=== PATIENT | female | born 1980 | race African-American/Black ===

== ENCOUNTER 2023-09-25 00:56 | Inpatient (IN) | payer MEDICAID, OTHER ==
[~2023-09-25] VITALS: Ht 170.2 cm; Wt 86.7 kg
[~2023-09-25 00:56] MED LIST: IRON18TA PO; PHEN-434 PO; PRENATAL ONE T1 EACH PO
[2023-09-25] MEDS ORDERED: MORPHINE SULFATE 4 MG/ML INJ (FOR IV/IM USE) IV STA (05:42)
[2023-09-25] MEDS ORDERED: ONDANSETRON HCL 4MG/2ML INJ IV STA (05:42)
[2023-09-25 06:06] LABS: BASOPHILS % 0.4 % (0.0-2.0); EOSINOPHILS % 0.1 % (0.0-5.0); HEMATOCRIT. 44.4 % (36.0-48.0); HEMOGLOBIN. 14.7 g/dL (12.0-16.0); LYMPHOCYTES % 13.5 % (20.0-50.0); MEAN CORPUSCULAR HEMOGLOBIN 27.7 pg (28.0-32.0); MEAN CORPUSCULAR HGB CONC 33.1 g/dL (31.0-37.0); MEAN CORPUSCULAR VOLUME 83.7 fL (81.0-99.0); MONOCYTES % 9.2 % (2.0-8.0); NEUTROPHILS % 76.8 % (40.0-76.0); PLATELET 394 x1000/uL (130-400); RED BLOOD CELL COUNT 5.31 mill/uL (4.2-5.4); RED CELL DISTRIBUTION WIDTH 13.8 % (11.6-14.6); WHITE BLOOD COUNT 8.8 x1000/uL (4.5-11.0)
[2023-09-25 06:08] LABS: CHLORIDE 103 mEq/L (98-107); POTASSIUM 3.8 mEq/L (3.5-5.1); SODIUM 141 mEq/L (136-145)
[2023-09-25 06:09] LABS: CALCIUM 9.8 mg/dL (8.7-10.4); CARBON DIOXIDE 32 mEq/L (21-32)
[2023-09-25 06:14] LABS: CREATININE 0.8 mg/dL (0.6-1.0); GLUCOSE 119 mg/dL (70-105); INR 0.9; PROTHROMBIN TIME 10.4 sec (9.6-11.0); UREA NITROGEN BLOOD 9 mg/dL (9-23)
[2023-09-25 06:15] LABS: HCG SCREEN NEGATIVE
[2023-09-25] MEDS: MORPHINE SULFATE 4 MG/ML INJ (FOR IV/IM USE) IV NR (09:03)
[2023-09-25] MEDS: ONDANSETRON HCL 4MG/2ML INJ IV NR (09:03)
[2023-09-25] MEDS: SODIUM CHLORIDE 0.9% 1,000 ML IV ONE (09:03)
[2023-09-25] MEDS ORDERED: IOHEXOL-300 100 ML BOTTLE ONE (10:21)
[2023-09-25] MEDS: MORPHINE SULFATE 4 MG/ML INJ (FOR IV/IM USE) IV STA (11:40)
[2023-09-25 11:41] LABS: CLARITY URINE CLEAR (CLEAR); COLOR URINE DARK YELLOW (YELLOW); GLUCOSE URINE NEGATIVE (NEGATIVE); KETONES URINE 1+ (NEGATIVE); LEUKOCYTE ESTERASE URINE TRACE (NEGATIVE); NITRITE URINE NEGATIVE (NEGATIVE); OCCULT BLOOD URINE NEGATIVE (NEGATIVE); PROTEIN URINE 1+ (NEGATIVE); SPECIFIC GRAVITY URINE 1.062 (1.005-1.030)
[2023-09-25 12:13] VITALS: BP 127/73; PULSE 70; RESP 20; TEMP 37.11408; O2SAT 99
[2023-09-25] MEDS ORDERED: ONDANSETRON HCL 4MG/2ML INJ IV PRN (12:30)
[2023-09-25] MEDS ORDERED: IPRATROPIUM/ALBUTEROL 0.5-3(2.5)MG/3ML NEB HHN PRN (12:30)
[2023-09-25] MEDS ORDERED: ACETAMINOPHEN 325MG TABLET PO PRN (12:30)
[2023-09-25 13:11] LABS: SQUAMOUS EPITHELIAL CELL URINE 3+ /lpf (RARE/1+); WBC URINE 50-100 /hpf (0-2)
[2023-09-25 13:12] LABS: BACTERIA URINE 2+; YEAST URINE NONE SEEN
[2023-09-25] MEDS: PANTOPRAZOLE SODIUM 40 MG/VIAL IV SCH (13:25)
[2023-09-25] MEDS: DEXT 5%/0.45% NACL 1000ML 1,000 ML IV SCH (13:26)
[2023-09-25] MEDS ORDERED: NALOXONE HCL 0.4MG/ML VIAL IV PRN (14:45)
[2023-09-25] MEDS: MORPHINE SULFATE 2 MG/ML INJ (NOT FOR IM USE) IV PRN (15:00)
[2023-09-25 15:14] VITALS: BP 127/65; PULSE 75; RESP 18; TEMP 36.696
[2023-09-25 16:00] VITALS: BP 118/55; PULSE 67; RESP 20; TEMP 36.50292; O2SAT 95
[2023-09-25] MEDS ORDERED: PHENYLEPHRINE 50MG/250ML PMX 250 ML IV PRN (20:00)
[2023-09-25] MEDS ORDERED: FENTANYL CITRATE/PF 50MCG/ML 5ML VIAL ONE (20:11)
[2023-09-25] MEDS ORDERED: TETRACAINE/BENZOCAINE/BUTAMBEN 20 GM SPRAY MM ONE (20:20)
[2023-09-25] MEDS ORDERED: ROCURONIUM BROMIDE 10MG/ML VIAL 5ML IV ONE ×3 (20:46→22:41)
[2023-09-25] MEDS ORDERED: ALBUMIN HUMAN 12.5G/250ML (5%) IV ONE (21:07)
[2023-09-25] MEDS ORDERED: GLYCOPYRROLATE 0.2 MG/ML 2ML VIAL ONE (21:12)
[2023-09-25] MEDS ORDERED: HYDROMORPHONE HCL/PF 2MG/ML INJ ONE ×2 (21:38→23:48)
[2023-09-25] MEDS: LACTATED RINGERS 1,000 ML IV SCH (22:15)
[2023-09-25] MEDS ORDERED: HYDROMORPHONE HCL/PF 2MG/ML INJ IV PRN (22:15)
[2023-09-25] MEDS ORDERED: MIDAZOLAM HCL 2 MG/2 ML VIAL ONE ×2 (23:47)
[2023-09-26] VITALS (105 sets, daily range): BP systolic 108–183; BP diastolic 64–109; PULSE 58–101; RESP 12–29; TEMP 33.28044–37.55856; O2SAT 97–100
[2023-09-26] MEDS: PROPOFOL 10MG/ML 100ML 100 ML IV PRN (00:44)
[2023-09-26] MEDS: HYDRALAZINE 20MG/ML VIAL IV PRN (01:30)
[2023-09-26] MEDS: MORPHINE SULFATE 4 MG/ML INJ (FOR IV/IM USE) IV PRN (01:54)
[2023-09-26 02:01] LABS: BG CARBOXYHEMOGLOBIN 0.9 % (0.5-1.5); BG DEOXYHEMOGLOBIN 0.8 % (0.0-5.0); BG HCO3 ACT 24.2 mmol/L (22.0-26.0); BG METHEMOGLOBIN 0.3 % (0.0-1.5); BG OXYGEN SATURATION 99.2 % (92.0-98.5); BG PCO2 41.9 mmHg (35.0-45.0); BG PH 7.379 (7.350-7.450); BG PO2 148.8 mmHg (75.0-100.0); BG SAMPLE SITE LEFT RADIAL; BG TOTAL HEMOGLOBIN 13.9 g/dL (12.0-18.0); BG VENT MODE VENT - AC
[2023-09-26 05:47] LABS: CHLORIDE 105 mEq/L (98-107); POTASSIUM 3.2 mEq/L (3.5-5.1); SODIUM 139 mEq/L (136-145)
[2023-09-26 05:50] LABS: CARBON DIOXIDE 26 mEq/L (21-32)
[2023-09-26 05:51] LABS: CALCIUM 8.6 mg/dL (8.7-10.4); PROTHROMBIN TIME 10.7 sec (9.6-11.0)
[2023-09-26 05:54] LABS: HEMATOCRIT. 36.6 % (36.0-48.0); HEMOGLOBIN. 11.8 g/dL (12.0-16.0); MEAN CORPUSCULAR HEMOGLOBIN 27.1 pg (28.0-32.0); MEAN CORPUSCULAR HGB CONC 32.3 g/dL (31.0-37.0); MEAN PLATELET VOLUME 7.6 fl (7.4-10.4); PLATELET 346 x1000/uL (130-400); PROTEIN TOTAL 6.3 g/dL (6.0-8.3); RED BLOOD CELL COUNT 4.36 mill/uL (4.2-5.4); RED CELL DISTRIBUTION WIDTH 13.8 % (11.6-14.6); WHITE BLOOD COUNT 12.6 x1000/uL (4.5-11.0)
[2023-09-26 05:55] LABS: GLUCOSE 172 mg/dL (70-105); UREA NITROGEN BLOOD 5 mg/dL (9-23)
[2023-09-26 05:56] LABS: ALANINE AMINOTRANSFERASE 12 IU/L (10-49); TRIGLYCERIDE 70 mg/dL (0-150)
[2023-09-26 05:57] LABS: ASPARTATE AMINOTRANSFERASE 17 IU/L (<34)
[2023-09-26 05:58] LABS: BILIRUBIN DIRECT 0.1 mg/dL (<=3.0); BILIRUBIN TOTAL 0.4 mg/dL (0.1-1.0); PHOSPHORUS 3.4 mg/dL (2.5-4.9)
[2023-09-26 06:02] LABS: CREATININE 0.5 mg/dL (0.6-1.0)
[2023-09-26 07:04] LABS: DIFFERENTIAL COMMENT 1
[2023-09-26] MEDS: MAGNESIUM 2 G PREMIX 50 ML IV SCH (08:47)
[2023-09-26] MEDS: KCL 20MEQ/100ML PREMIX 100 ML IV SCH (09:55)
[2023-09-26] MEDS: METHYLPREDNISOLONE SOD SUCC 125MG/2ML (ACT-O-VIAL) IV NR (12:48)
[2023-09-26 15:45] LABS: *AMPHETAMINES SCREEN URINE NEGATIVE (NEGATIVE); *BARBITURATES SCREEN URINE NEGATIVE (NEGATIVE); *BENZODIAZEPINES SCREEN URINE NEGATIVE (NEGATIVE); *COCAINE SCREEN URINE PRESUMPTIVE POSITIVE (NEGATIVE); METHADONE URINE SCREEN NEGATIVE (NEGATIVE)
[2023-09-26 15:46] LABS: CANNABINOID URINE SCREEN PRESUMPTIVE POSITIVE (NEGATIVE); ECSTASY MDMA SCREEN URINE NEGATIVE (NEGATIVE); OPIATES URINE SCREEN PRESUMPTIVE POSITIVE (NEGATIVE); PHENCYCLIDINE URINE SCREEN NEGATIVE (NEGATIVE)
[2023-09-26] MEDS: METHYLPREDNISOLONE SOD SUCC 125MG/2ML (ACT-O-VIAL) IV SCH (16:25)
[2023-09-26 17:09] LABS: PLATELET ESTIMATE NORMAL
[2023-09-26] MEDS ORDERED: IPRATROPIUM/ALBUTEROL 0.5-3(2.5)MG/3ML NEB HHN PRN (19:45)
[2023-09-26] MEDS: DEXMEDETOMIDINE 400 MCG/100 ML 100 ML IV PRN (19:45)
[2023-09-26] MEDS: CEFTRIAXONE 1GM/50ML 50 ML IV SCH (23:44)
[2023-09-27] VITALS (76 sets, daily range): BP systolic 85–116; BP diastolic 45–81; PULSE 64–96; RESP 14–27; TEMP 36.6696–37.00296; O2SAT 93–100
[2023-09-27] MEDS: PROPOFOL 10MG/ML 100ML 100 ML IV PRN (08:50)
[2023-09-27 10:00] LABS: CHLORIDE 107 mEq/L (98-107); GLUCOSE 155 mg/dL (70-105); POTASSIUM 4.4 mEq/L (3.5-5.1); SODIUM 142 mEq/L (136-145)
[2023-09-27 10:01] LABS: ALBUMIN 3.7 g/dL (3.2-4.8); CREATININE 0.6 mg/dL (0.6-1.0); PROTEIN TOTAL 6.1 g/dL (6.0-8.3); UREA NITROGEN BLOOD 7 mg/dL (9-23)
[2023-09-27 10:02] LABS: ALANINE AMINOTRANSFERASE 14 IU/L (10-49); ASPARTATE AMINOTRANSFERASE 17 IU/L (<34); BILIRUBIN DIRECT < 0.1 mg/dL (<=3.0); BILIRUBIN TOTAL 0.2 mg/dL (0.1-1.0); PHOSPHORUS 2.9 mg/dL (2.5-4.9)
[2023-09-27 10:20] LABS: CARBON DIOXIDE 25 mEq/L (21-32)
[2023-09-27 10:24] LABS: HEMATOCRIT. 33.6 % (36.0-48.0); HEMOGLOBIN. 10.8 g/dL (12.0-16.0); MEAN CORPUSCULAR HEMOGLOBIN 26.9 pg (28.0-32.0); MEAN CORPUSCULAR HGB CONC 32.2 g/dL (31.0-37.0); MEAN CORPUSCULAR VOLUME 83.7 fL (81.0-99.0); MEAN PLATELET VOLUME 7.5 fl (7.4-10.4); PLATELET 289 x1000/uL (130-400); RED BLOOD CELL COUNT 4.02 mill/uL (4.2-5.4); RED CELL DISTRIBUTION WIDTH 13.6 % (11.6-14.6); WHITE BLOOD COUNT 15.2 x1000/uL (4.5-11.0)
[2023-09-27 10:38] LABS: DIFFERENTIAL COMMENT 1
[2023-09-27 12:21] LABS: PLATELET ESTIMATE NORMAL
[2023-09-27 12:36] LABS: BG CARBOXYHEMOGLOBIN 0.2 % (0.5-1.5); BG DEOXYHEMOGLOBIN 1.9 % (0.0-5.0); BG FRACTION INSPIRED OXYGEN 40; BG HCO3 ACT 25.7 mmol/L (22.0-26.0); BG METHEMOGLOBIN 0.3 % (0.0-1.5); BG OXYGEN SATURATION 98.1 % (92.0-98.5); BG OXYHEMOGLOBIN 97.6 % (94.0-97.0); BG PCO2 37.2 mmHg (35.0-45.0); BG PH 7.458 (7.350-7.450); BG PO2 105.3 mmHg (75.0-100.0); BG SAMPLE SITE RIGHT RADIAL; BG TOTAL HEMOGLOBIN 11.5 g/dL (12.0-18.0); BG VENT MODE VENT - CPAP
[2023-09-27] MEDS ORDERED: RACEPINEPHRINE 2.25% 0.5ML NEB VIAL HHN PRN (13:00)
[2023-09-27] MEDS: ACETAMINOPHEN 325MG TABLET PO PRN (22:45)
[2023-09-28] VITALS (30 sets, daily range): BP systolic 92–141; BP diastolic 36–86; PULSE 76–92; RESP 13–26; TEMP 36.114–37.00296; O2SAT 94–100
[2023-09-28] MEDS: METHYLPREDNISOLONE SOD SUCC 40MG/ML (ACT-O-VIAL) IV SCH (17:52)
[2023-09-29] VITALS: BP 146/86; PULSE 81; RESP 19; TEMP 36.55848; O2SAT 98
[2023-09-29 04:00] VITALS: BP 114/67; PULSE 62; RESP 19; TEMP 36.9474; O2SAT 97
[2023-09-29 08:00] VITALS: BP 158/72; PULSE 64; RESP 19; TEMP 36.50292; O2SAT 99
[2023-09-29 12:00] VITALS: BP 120/82; PULSE 73; RESP 20; TEMP 36.50292; O2SAT 99
[2023-09-29 16:00] VITALS: BP 123/80; PULSE 79; RESP 20; TEMP 36.78072; O2SAT 100
[2023-09-29 16:58] LABS: HEMATOCRIT. 34.6 % (36.0-48.0); HEMOGLOBIN. 11.1 g/dL (12.0-16.0); MEAN CORPUSCULAR VOLUME 84.5 fL (81.0-99.0); MEAN PLATELET VOLUME 7.4 fl (7.4-10.4); PLATELET 375 x1000/uL (130-400); RED BLOOD CELL COUNT 4.09 mill/uL (4.2-5.4); RED CELL DISTRIBUTION WIDTH 13.6 % (11.6-14.6); WHITE BLOOD COUNT 13.4 x1000/uL (4.5-11.0)
[2023-09-29 17:00] LABS: DIFFERENTIAL COMMENT 1
[2023-09-29 17:02] LABS: CARBON DIOXIDE 26 mEq/L (21-32); CHLORIDE 106 mEq/L (98-107); SODIUM 137 mEq/L (136-145)
[2023-09-29 17:03] LABS: CALCIUM 9.1 mg/dL (8.7-10.4)
[2023-09-29 17:08] LABS: CREATININE 0.6 mg/dL (0.6-1.0); GLUCOSE 201 mg/dL (70-105); UREA NITROGEN BLOOD 16 mg/dL (9-23)
[2023-09-29 17:10] LABS: ALANINE AMINOTRANSFERASE 39 IU/L (10-49); ALBUMIN 3.8 g/dL (3.2-4.8); ASPARTATE AMINOTRANSFERASE 37 IU/L (<34); BILIRUBIN TOTAL 0.2 mg/dL (0.1-1.0); PHOSPHORUS 2.3 mg/dL (2.5-4.9); PROTEIN TOTAL 6.6 g/dL (6.0-8.3)
[2023-09-29 17:31] LABS: BILIRUBIN DIRECT < 0.1 mg/dL (<=3.0)
[2023-09-29 18:47] LABS: PLATELET ESTIMATE NORMAL
[2023-09-29 20:00] VITALS: BP 117/74; PULSE 70; RESP 18; TEMP 37.503; O2SAT 100
[2023-09-30] VITALS: BP 108/66; PULSE 60; RESP 19; TEMP 36.72516; O2SAT 99
[2023-09-30 04:00] VITALS: BP 142/78; PULSE 51; RESP 19; TEMP 36.3918; O2SAT 98
[2023-09-30 07:45] LABS: CARBON DIOXIDE 27 mEq/L (21-32); CHLORIDE 104 mEq/L (98-107); POTASSIUM 3.7 mEq/L (3.5-5.1); SODIUM 137 mEq/L (136-145)
[2023-09-30 07:46] LABS: CALCIUM 9.2 mg/dL (8.7-10.4)
[2023-09-30 07:50] LABS: CREATININE 0.6 mg/dL (0.6-1.0)
[2023-09-30 07:51] LABS: GLUCOSE 143 mg/dL (70-105); UREA NITROGEN BLOOD 16 mg/dL (9-23)
[2023-09-30 07:57] LABS: BASOPHILS % 0.4 % (0.0-2.0); HEMATOCRIT. 33.3 % (36.0-48.0); HEMOGLOBIN. 10.7 g/dL (12.0-16.0); LYMPHOCYTES % 10.2 % (20.0-50.0); MEAN CORPUSCULAR HEMOGLOBIN 26.9 pg (28.0-32.0); MEAN CORPUSCULAR HGB CONC 32.2 g/dL (31.0-37.0); MEAN CORPUSCULAR VOLUME 83.5 fL (81.0-99.0); MONOCYTES % 8.2 % (2.0-8.0); NEUTROPHILS % 81.2 % (40.0-76.0); PLATELET 368 x1000/uL (130-400); RED BLOOD CELL COUNT 3.98 mill/uL (4.2-5.4); RED CELL DISTRIBUTION WIDTH 13.4 % (11.6-14.6); WHITE BLOOD COUNT 12.2 x1000/uL (4.5-11.0)
[2023-09-30 08:00] VITALS: BP 133/71; PULSE 51; RESP 18; TEMP 36.61404; O2SAT 98
[2023-09-30 12:00] VITALS: BP 122/69; PULSE 60; RESP 18; TEMP 36.114; O2SAT 98
[2023-09-30 16:00] VITALS: BP 118/68; PULSE 66; RESP 18; TEMP 36.50292; O2SAT 98
[2023-09-30 20:00] VITALS: BP 117/69; PULSE 70; RESP 18; TEMP 36.44736; O2SAT 98
[2023-09-30] MEDS ORDERED: NALOXONE HCL 0.4MG/ML VIAL IV PRN (20:00)
[2023-10-01] VITALS: BP 120/75; PULSE 7; RESP 19; TEMP 36.22512; O2SAT 99
[2023-10-01 04:00] VITALS: BP 114/68; PULSE 78; RESP 18; TEMP 36.78072; O2SAT 97
[2023-10-01 06:53] LABS: BASOPHILS % 0.3 % (0.0-2.0); HEMATOCRIT. 33.1 % (36.0-48.0); HEMOGLOBIN. 10.9 g/dL (12.0-16.0); MEAN CORPUSCULAR HEMOGLOBIN 27.5 pg (28.0-32.0); MEAN CORPUSCULAR VOLUME 83.3 fL (81.0-99.0); MEAN PLATELET VOLUME 6.8 fl (7.4-10.4); MONOCYTES % 12.1 % (2.0-8.0); NEUTROPHILS % 68.6 % (40.0-76.0); PLATELET 397 x1000/uL (130-400); RED BLOOD CELL COUNT 3.98 mill/uL (4.2-5.4); RED CELL DISTRIBUTION WIDTH 13.5 % (11.6-14.6); WHITE BLOOD COUNT 15.2 x1000/uL (4.5-11.0)
[2023-10-01 07:02] LABS: CARBON DIOXIDE 27 mEq/L (21-32); CHLORIDE 105 mEq/L (98-107); POTASSIUM 4.2 mEq/L (3.5-5.1); SODIUM 138 mEq/L (136-145)
[2023-10-01 07:04] LABS: DIFFERENTIAL COMMENT 1
[2023-10-01 07:06] LABS: CREATININE 0.7 mg/dL (0.6-1.0); GLUCOSE 93 mg/dL (70-105); UREA NITROGEN BLOOD 15 mg/dL (9-23)
[2023-10-01 07:08] LABS: ALANINE AMINOTRANSFERASE 170 IU/L (10-49); ALBUMIN 3.6 g/dL (3.2-4.8); ASPARTATE AMINOTRANSFERASE 97 IU/L (<34)
[2023-10-01 07:09] LABS: BILIRUBIN TOTAL 0.2 mg/dL (0.1-1.0); PHOSPHORUS 3.8 mg/dL (2.5-4.9)
[2023-10-01 07:31] LABS: BILIRUBIN DIRECT < 0.1 mg/dL (<=3.0)
[2023-10-01 08:00] VITALS: BP 121/70; PULSE 54; RESP 18; TEMP 36.72516; O2SAT 98
[2023-10-01] MEDS: DOCUSATE SODIUM 100MG CAPSULE PO PRN (09:24)
[2023-10-01] MEDS ORDERED: LEVO750T68 MT (11:59)
[2023-10-01] MEDS ORDERED: PRED10TA MT (11:59)
[2023-10-01] MEDS ORDERED: P20 MT (11:59)
[2023-10-01] MEDS ORDERED: PRED5TAB MT (11:59)
[2023-10-01 12:00] VITALS: BP 118/63; PULSE 56; RESP 19; TEMP 36.50292; O2SAT 96
[2023-10-01] MEDS: AZITHROMYCIN 500MG/250ML 250 ML IV SCH (13:46)
[2023-10-01] MEDS: METHYLPREDNISOLONE SOD SUCC 40MG/ML (ACT-O-VIAL) IV SCH (13:46)
[2023-10-01 15:20] VITALS: BP 118/63; PULSE 57; TEMP 97.7; O2SAT 96
== END 2023-10-01 17:45 | disposition home or self-care (01) | DRG 227 ==
LOC: ER 00:56 → EDBEDREQ 05:56 → 5WST 11:19 → EDBEDREQ 11:25 → EDBEDREQSVC 11:25 → EDBEDREQTM 11:25 → 8WST 13:02 → MICUSO 23:05 → 7EST 09-28 15:30
PROVIDERS: ADMIT Internal Medicine; ATTEND Internal Medicine
PROC: 0WUF0JZ Supplement Abdominal Wall with Synthetic Substitute, Open Approach (ICD-10-PCS; principal; 2023-09-26)
DX: K43.0 Incisional hernia with obstruction, without gangrene (principal); J96.90 Respiratory failure, unspecified, unspecified whether with hypoxia or hypercapnia; R65.10 Systemic inflammatory response syndrome (SIRS) of non-infectious origin without acute organ dysfunction; R62.7 Adult failure to thrive; N39.0 Urinary tract infection, site not specified; F17.210 Nicotine dependence, cigarettes, uncomplicated; F12.10 Cannabis abuse, uncomplicated; Z68.29 Body mass index [BMI] 29.0-29.9, adult; I10 Essential (primary) hypertension; Z60.2 Problems related to living alone; K80.20 Calculus of gallbladder without cholecystitis without obstruction; F14.10 Cocaine abuse, uncomplicated; E66.9 Obesity, unspecified; E83.42 Hypomagnesemia; E87.6 Hypokalemia; Z79.899 Other long term (current) drug therapy
CPT/HCPCS: 36415; 36600; 70490; 71045; 74177; 76700; 80048; 80053; 80076; 80305; 81003; 82375; 82805; 83036; 83605; 83735; 84100; 84145; 84478; 84703; 85025; 88302; 93005; 94003; 94660; 97116; 97162; 97166; 97535; 99291; C1893; J0360; J0456; J0696; J1170; J2250; J2270; J2405; J2470; J2704; J2919; J2920; J3010; J3475; J3480; J3490; J7030; P9041; Q9957; Q9967